=== PATIENT | female | born 1965 | race Caucasian/White ===

== ENCOUNTER → 2017-06-28 16:57 | Outpatient (CLI) | payer OTHER, SELFPAY ==
[2017-06-28 19:40] LABS: Free T4 (Free Thyroxine) 1.15 ng/dl (0.76-1.46); Thyroid Stimulating Hormone 1.78 uIU/ml (0.358-3.740)
== END ==
PROVIDERS: Visit Provider Nurse Practitioner Family
DX: E03.9 Hypothyroidism, unspecified (principal)
CPT/HCPCS: 36415; 84439; 84443

== ENCOUNTER → 2018-10-26 14:55 | Outpatient (CLI) | payer BC, SELFPAY ==
--- NOTE | 2018-10-26 15:01 | XR_ITS ---
XR DEXA axial skeleton HISTORY: ITS.REASON: POST MENOPAUSAL ORDERING PHYSICIAN: Wesley Hastings MD PATIENT AGE: 53 years COMPARISON: None FINDINGS: Lumbar spine AP view history fairly normal without sclerotic areas. L1-L4, BMD is 1.2-0, T score is 0.3. The BMD measured at the left femoral neck is 0.917 g/cm squared with a T score of -0.9. This is considered within normal limits according to the World Health Organization criteria. Fracture risk is mild. Treatment is advised. IMPRESSION: No definite osteopenia or osteoporosis.
--- NOTE | 2018-10-26 15:01 | MM_ITS ---
MM Dig screening mamm BI w/CAD CAD Screening COMPARISON: Digital mammograms with CAD 11/16/2016 INDICATION: There is no personal or family history of breast cancer, there has been a previous biopsy left breast for benign disease TECHNIQUE: Standard CC and MLO images were obtained. R2 CAD reviewed. FINDINGS: There is a markedly dense and heterogenic parenchymal pattern definitely lessening the sensitivity of mammography. Scattered numerous benign-appearing microcalcifications seen in each breast appearance most typical of sclerosing adenosis. There is no new or suspicious lesion in either breast and there are no suspicious microcalcifications. A biopsy clip is seen left breast. IMPRESSION: Stable exam with markedly dense and heterogenic parenchymal pattern BI-RADS Category: 2 Benign Finding(s) RECOMMENDED FOLLOW-UP: 1YR - 1 YEAR FOLLOW-UP (A letter has been sent to the patient regarding results of the study.)
== END ==
PROVIDERS: PCP Internal Medicine Adolescent Medicine; Visit Provider Internal Medicine Adolescent Medicine
DX: Z12.31 Encounter for screening mammogram for malignant neoplasm of breast (principal); Z13.820 Encounter for screening for osteoporosis; Z78.0 Asymptomatic menopausal state
CPT/HCPCS: 77067; 77080

== ENCOUNTER → 2018-11-17 16:00 | Outpatient (CLI) | payer BC, SELFPAY | PROVIDERS: Visit Provider Nurse Practitioner Family | DX: J01.10 Acute frontal sinusitis, unspecified (principal) ==

== ENCOUNTER → 2019-08-14 15:36 | Outpatient (CLI) | payer BC, SELFPAY ==
--- NOTE | 2019-08-14 15:39 | XR_ITS ---
PROCEDURE: XR SHOULDER LT MIN 2V CLINICAL INDICATION: LT SHOULDER PAIN, Left shoulder pain COMPARISON: No exams were available for comparison FINDINGS: There is an old midshaft clavicular fracture with mild inferior angulation of the distal aspect of the clavicle. There are minimal osteoarthritic changes of the glenohumeral joint. AC joint has an unremarkable appearance. No acute fracture or dislocation. IMPRESSION: Minimal osteoarthritis of the glenohumeral joint with old midshaft clavicular fracture Dictated by: Kishore Last MD 08/14/2019 16:36 Electronically signed by Kishore Last MD in [place] 08/14/2019 16:36
--- NOTE | 2019-08-14 15:41 | US_ITS ---
PROCEDURE: US EXTREMITY LT LIMITED CLINICAL INDICATION: SOFT TISSUE ANOMALY NEC,LT SHOULDER PAIN,CHRONIC PAIN Palpable abnormality in the left shoulder COMPARISON: No exams were available for comparison FINDINGS: There is an oval area hypoechogenicity with some internal linear areas of increased echogenicity in the left shoulder posteriorly corresponding to the palpable abnormality which measures 4 x 1 x 3.2 cm. This is consistent with a lipoma. No cyst or other anomaly is evident. 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 This could be confirmed with CT if clinically desired. Dictated by: Kishore Last MD 08/14/2019 17:11 Electronically signed by Kishore Last MD in [facility] 08/14/2019 17:11
== END ==
PROVIDERS: PCP Internal Medicine Adolescent Medicine; Visit Provider Nurse Practitioner Family
DX: Q79.8 Other congenital malformations of musculoskeletal system (principal); M25.512 Pain in left shoulder; G89.29 Other chronic pain
CPT/HCPCS: 73030; 76882

== ENCOUNTER 2020-06-27 18:44 | Emergency (ER) | payer BC, SELFPAY ==
[2020-06-27 19:07] VITALS: BP 127/65; PULSE 89; RESP 19; TEMP 36.9; O2SAT 99; BMI 25.2
[2020-06-27 19:22] LABS: UTC Strep Screen (Rapid) Positive (Negative)
--- NOTE | 2020-06-27 19:22 | HMH.EDUTC ---
[facility] [place] Disposition Clinical Impression: Strep throat Disposition: Home, Self-Care Condition on Discharge: Good Instructions: DI for Strep Throat, Strep Throat, Azithromycin, Benzonatate, Methylprednisolone Additional Instructions: *Monitor Temp, Over the counter Motrin or Tylenol as directed/as needed Tylenol every 4 hours and Motrin every 6 hours (as long as your family doctor has told you that you can take it) for fever or pain. and straight to ER if unable to lower temp less than 101.0 after medication given *Warm salt water gargles may help to soothe the throat *Throat Lozenges *Warm fluids like tea with honey may help to soothe the throat *Sleep elevated *Humidifier/Vaporizer *If you did not take Penicillin shot or was unable to, start taking antibiotic immediately and make sure that you take it for the FULL length of time although you should start to feel better in 24-48 hours *change toothbrush and toothpaste 24-48 hours after starting to take antibiotics so you do not reinfect yourself Monitor Temp. Tylenol and/or Ibuprofen as needed. ER if fever is no less than 101 despite alternating Tylenol and Ibuprofen * Encourage fluids, water, Gatorade, powerade, pedialyte if /toddler/or child *Cold fluids, popsicles and ice cream may feel good on his throat Follow up IMMEDIATELY for new or worsening symptoms or no Noticeable improvement over the next 48-72 hours. 911 for difficulty breathing or swallowing Prescriptions: methylPREDNISolone [Medrol 4mg tab] 4 mg PO DIRECTED #21 tab Transmission Status: Pending to [employer] # Benzonatate [Tessalon Perle 100mg Cap*] 100 mg PO TID PRN #30 cap PRN Reason: Cough Transmission Status: Pending to [employer] # Azithromycin [Z-Geovany 250mg Tab] 250 mg PO DIRECTED #6 tab Transmission Status: Pending to [employer] # Referrals: Wesley Hastings MD [Primary Care Provider] - As needed Forms: Work/School Release Time of Disposition: 19:31 Medical Decision Making - Giovanni Inquiry Pt receiving controlled substance: No Giovanni was queried for this patient: No Vital Signs: 03/25/21 19:07 Temperature 98.4 F Temperature Source Oral Pulse Rate [Right] 89 Respiratory Rate 19 Blood Pressure [Right Arm] 127/65 Blood Pressure Mean [Right Arm] 85 Blood Pressure Source [Right Arm] Automatic Cuff 02 Sat by Pulse Oximetry 99 Oxygen Delivery Method Room Air - Lab Data Lab results reviewed: Yes: I reviewed the patient's lab results. Medical Decision Narrative: Patient reports has taken azithromycin and steriods in the past without reactions or complications [facility] [place] HPI - General Stated complaint: cough Time Seen by Provider: 06/27/20 19:10 Description of Symptoms (Recalled from Triage Doc. by RN): Pt c/o cough & sore throat since last week. Pt reports her grandson was diagnosed with strep recently. HEENT Symptoms (Recalled from RN notes): Yes Resp Symptoms (Recalled from RN notes): Yes Skin Symptoms (Recalled from RN notes): No MS Symptoms (Recalled from RN notes): No Functional Status (Recalled from RN notes): na - History of Present Illness Provider Complaint: Patient states that she has not felt well for over a week State that she has been having sore throat, cough and headache on and off States that her grandson was sick recently too and had strep States that today at work her cough was worse and she was having some drainage so she come in to get checked - Related Data Home Medications Medication Instructions Recorded Confirmed levothyroxine 50 mcg capsule 50 mcg PO DAILY 12/13/17 11/17/18 Previous Rx's Medication Instructions Recorded Azithromycin [Z-Geovany 250mg Tab] 250 mg PO DIRECTED #6 tab 06/27/20 Benzonatate [Tessalon Perle 100mg 100 mg PO TID PRN #30 cap 06/27/20 Cap*] methylPREDNISolone [Medrol 4mg 4 mg PO DIRECTED #21 tab 06/27/20 tab] Allergies Allergy/AdvReac Type Sever
[2020-06-27 19:30] VITALS: BP 130/65; PULSE 88; RESP 19; TEMP 36.9; O2SAT 99
== END 2020-06-27 19:40 | disposition home or self-care (01) ==
PROVIDERS: Emergency Provider Nurse Practitioner; PCP Internal Medicine Adolescent Medicine
DX: J02.0 Streptococcal pharyngitis (principal); E03.9 Hypothyroidism, unspecified; F17.210 Nicotine dependence, cigarettes, uncomplicated
CPT/HCPCS: 87880; 99202; G0463

== ENCOUNTER → 2020-12-19 17:26 | Outpatient (CLI) | payer BC, SELFPAY | PROVIDERS: PCP Internal Medicine Adolescent Medicine; Visit Provider Nurse Practitioner | DX: Z20.822 Contact with and (suspected) exposure to COVID-19 (principal) | CPT/HCPCS: C9803; U0003; U0005 ==

== ENCOUNTER → 2021-01-03 14:48 | Outpatient (CLI) | payer BC, SELFPAY ==
--- NOTE | 2021-01-03 14:48 | MM_ITS ---
PROCEDURE INFORMATION: Exam: MG Bilateral Screening 3D Mammography Exam date and time: 01/03/2021 2:48 PM Age: 55 years old Clinical indication: screening mammogram TECHNIQUE: Imaging protocol: Bilateral screening tomosynthesis and 2D mammography including computer-aided detection (CAD) when performed. COMPARISON: 1. MG DIG MAMM-SCREEN KAILEE 10/26/2018 3:27 PM 2. MG DMSB DIG MAMM-SCREEN KAILEE W/CAD 11/16/2016 4:54 PM 3. MG DMDXUR DIG MAMM-DX UNI-RT 07/11/2014 8:53 AM 4. MG DMSB DIG MAMM-SCREEN KAILEE 05/10/2014 4:27 PM FINDINGS: MAMMOGRAPHY: Breast composition: The breast tissue is heterogeneously dense, which may obscure small masses. Mass: None. Architectural distortion: No new or suspicious architectural distortion. Calcifications: Stable benign-appearing calcifications are present. No new or suspicious cluster of microcalcifications have developed. Asymmetric density: No new or suspicious asymmetric density is present Skin thickening: None. Axillary adenopathy: None. IMPRESSION: No mammographic evidence of malignancy. Recommend annual screening mammography unless otherwise clinically indicated. ASSESSMENT: BI-RADS category 2: Benign
== END ==
PROVIDERS: PCP Internal Medicine Adolescent Medicine; Visit Provider Nurse Practitioner Obstetrics & Gynecology
DX: Z12.31 Encounter for screening mammogram for malignant neoplasm of breast (principal)
CPT/HCPCS: 77063; 77067

== ENCOUNTER 2021-05-28 18:36 | Emergency (ER) | payer BC, SELFPAY ==
[2021-05-28 19:05] VITALS: BP 127/68; PULSE 72; RESP 19; TEMP 36.6; O2SAT 98; BMI 25.1
[2021-05-28 19:11] LABS: UTC Strep Screen (Rapid) Negative (Negative)
--- NOTE | 2021-05-28 19:22 | HMH.EDUTC ---
[facility] [place] Disposition Clinical Impression: URI (upper respiratory infection) Qualifiers: URI type: unspecified URI Qualified Code(s): J06.9 - Acute upper respiratory infection, unspecified Disposition: Home, Self-Care Condition on Discharge: Good Instructions: Sore Throat, Acute Bronchitis, DI for Cough -- Adult Additional Instructions: *Monitor Temp, Over the counter Motrin or Tylenol as directed/as needed Tylenol every 4 hours and Motrin every 6 hours (as long as your family doctor has told you that you can take it) for fever or pain. and straight to ER if unable to lower temp less than 101.0 after medication given *Warm salt water gargles may help to soothe the throat *Throat Lozenges *Warm fluids like tea with honey may help to soothe the throat *Sleep elevated *Humidifier/Vaporizer Your throat swab was sent for culture. Those results are typically sent to your primary care. Be sure to follow up in 2-3 days with your family doctor/primary care physician if no improvement so they can review those result and treat if necessary. If you don?t have a primary care doctor, I recommend you get one but in the mean time, you will have to return to a walk in clinic Follow up IMMEDIATELY for new or worsening symptoms or no Noticeable improvement over the next 48-72 hours. 911 for difficulty breathing or swallowing You were tested for today for COVID19 your test result should be back in the next 24-48 hours, you may check your results on the [facility] My Health Portal Make sure to take your Vitamins Vit. C Vit D and Zinc if you can take them Prescriptions: Benzonatate [Benzonatate 100mg cap] 100 mg PO Q8HP PRN #15 cap PRN Reason: Cough Transmission Status: Pending to [employer] # methylPREDNISolone [Medrol 4mg tab] 4 mg PO DIRECTED #21 tab Transmission Status: Pending to [facility] # Azithromycin [Z-Geovany 250mg Tab] 250 mg PO DIRECTED #6 tab Transmission Status: Pending to [facility] # Referrals: Wesley Hastings MD [Primary Care Provider] - As needed Forms: Work/School Release Time of Disposition: 19:30 Medical Decision Making - Giovanni Inquiry Pt receiving controlled substance: No Giovanni was queried for this patient: No Vital Signs: 05/28/21 19:05 Temperature 97.8 F Temperature Source Oral Pulse Rate [Right Radial] 72 Respiratory Rate 19 Blood Pressure [Right Arm] 127/68 Blood Pressure Mean [Right Arm] 87 Blood Pressure Source [Right Arm] Automatic Cuff Blood Pressure Position [Right Arm] Sitting 02 Sat by Pulse Oximetry 98 - Lab Data Lab results reviewed: Yes: I reviewed the patient's lab results. Lab Results 05/28/21 19:02: Strep Scn Rapid Clinic Negative Orders (Tests/Meds): ORDERS Category Date Time Status Covid-19 Nasal PCR ([facility]) Routine Lab 05/28/21 18:58 Received Strep Screen Confirmation Stat Micro 05/28/21 19:02 Received [facility] UTC HPI - General Stated complaint: sore throat, cough Time Seen by Provider: 05/28/21 19:22 Mode of Arrival: Ambulatory Source of Information: Patient Limitations: No Limitations Description of Symptoms (Recalled from Triage Doc. by RN): C/O sore throat, cough, chest congestion x3 days HEENT Symptoms (Recalled from RN notes): Yes (sore throat, chest congestion) Resp Symptoms (Recalled from RN notes): No Skin Symptoms (Recalled from RN notes): No MS Symptoms (Recalled from RN notes): No Functional Status (Recalled from RN notes): n/a - History of Present Illness Provider Complaint: Patient states that she has been having sore throat, cough, and feels like she is having some congestion in her chest States that she isnt coughing anything up but feels like she is getting bronchitis States that today she was feeling worse so she came in to get checked and tested - Related Data Home Medications Medication Instructions Recorded Confirmed levothyroxine 50 mcg capsule 50 mcg PO DAILY 12/13/17 07/25/20
[2021-05-28 19:38] VITALS: BP 127/68; PULSE 72; RESP 19; TEMP 36.6; O2SAT 98
== END 2021-05-28 19:39 | disposition home or self-care (01) ==
PROVIDERS: Emergency Provider Nurse Practitioner; PCP Internal Medicine Adolescent Medicine
DX: J06.9 Acute upper respiratory infection, unspecified (principal); F17.210 Nicotine dependence, cigarettes, uncomplicated
CPT/HCPCS: 87880; 99202; C9803; G0463; U0003; U0005

== ENCOUNTER → 2021-06-20 06:50 | Outpatient (CLI) | payer BC, SELFPAY ==
--- NOTE | 2021-06-20 06:54 | CT_ITS ---
FINAL REPORT CLINICAL HISTORY: TOBACCO USER FINDINGS: Low-Dose Chest CT CTDI vol (mGy): 2.90 DLP (mGy-cm): 100.29 Axial images were obtained from the lung apex to the mid abdomen by computed tomography. Low-dose protocol was utilized. FINDINGS: CHEST: There is no axillary adenopathy. There is no hilar or mediastinal adenopathy. The heart is proper size. There is no pericardial or pleural effusion. Limited images of the upper abdomen are unremarkable. Lung window images demonstrate mild changes of emphysema. There is a calcified granuloma in the left lung base. There is a 5 mm ground-glass opacity in the posterior left upper lobe on image 23. There is a 6 mm ground-glass nodule image 27 in the left upper lobe. There is a 6 mm ground-glass nodule in the left upper lobe on image 33. IMPRESSION: Lung RADS category 2. Recommend 12 month follow-up low-dose chest CT. Reviewed, Interpreted and Dictated by Chema Jorgensen III, MD Transcribed by Jaydon Sawyer Authenticated by Chema Jorgensen III, MD on 06/20/2021 09:15:59 AM [facility]
== END ==
PROVIDERS: PCP Internal Medicine Adolescent Medicine; Visit Provider Internal Medicine Adolescent Medicine
DX: Z87.891 Personal history of nicotine dependence (principal); Z12.2 Encounter for screening for malignant neoplasm of respiratory organs
CPT/HCPCS: 71271

== ENCOUNTER → 2022-02-13 12:53 | Outpatient (CLI) | payer BC, SELFPAY ==
--- NOTE | 2022-02-13 12:53 | MM_ITS ---
PROCEDURE INFORMATION: Exam: MG Bilateral Screening 3D Mammography Exam date and time: 02/13/2022 12:55 PM Age: 56 years old Clinical indication: Screening. No family history of breast cancer. History of benign bilateral stereotactic biopsies. TECHNIQUE: Imaging protocol: Bilateral Screening tomosynthesis and 2D mammography including computer-aided detection (CAD) when performed. COMPARISON: 1. MG MM DIG SCREENING MAMM BI W/CAD 01/03/2021 2:52 PM 2. MG DIG MAMM-SCREEN KAILEE 10/26/2018 3:27 PM 3. MG DMSB DIG MAMM-SCREEN KAILEE W/CAD 11/16/2016 4:54 PM 4. MG DMDXUR DIG MAMM-DX UNI-RT 07/11/2014 8:53 AM FINDINGS: MAMMOGRAPHY: Breast composition: The breasts are heterogeneously dense, which may obscure small masses. Mass: None. Architectural distortion: None. Calcifications: No significant change in bilateral calcifications. No suspicious calcifications. Asymmetric density: None. Skin thickening: None. Axillary adenopathy: None. Other findings: Bilateral biopsy clips. IMPRESSION: No mammographic evidence of malignancy. Annual screening is recommended unless otherwise clinically indicated. ASSESSMENT: BI-RADS Category 2: Benign
== END ==
PROVIDERS: PCP Internal Medicine Adolescent Medicine; Visit Provider Nurse Practitioner Obstetrics & Gynecology
DX: Z12.31 Encounter for screening mammogram for malignant neoplasm of breast (principal)
CPT/HCPCS: 77063; 77067

== ENCOUNTER 2022-06-21 21:20 | Emergency (ER) | payer BC, SELFPAY ==
[2022-06-21 21:21] VITALS: BP 132/81; PULSE 75; RESP 19; TEMP 36.6; O2SAT 97; BMI 25.0
--- NOTE | 2022-06-21 21:36 | PC.NURSE ---
Dr. Dubnar at
--- NOTE | 2022-06-21 21:38 | ECG_ITS ---
APPROVED REPORT Exam: Resting ECG HR:74 bpm ECG Measurements Heart Rate 74 AXES AL 170 P 82 QRSd 122 QRS 87 QT 383 T 82 QTc 410 Conclusion SINUS RHYTHM POSSIBLE RIGHT VENTRICULAR CONDUCTION DELAY [RSR (QR) IN V1/V2] BORDERLINE ECG UNCONFIRMED REPORT Electronically signed by : Wesley Hastings MD 06/22/2022 17:28:49
--- NOTE | 2022-06-21 21:45 | XR_ITS ---
PROCEDURE INFORMATION: Exam: XR Chest Exam date and time: 06/21/2022 9:43 PM Age: 57 years old Clinical indication: Other: HTN; Additional info: New onset HTN TECHNIQUE: Imaging protocol: Radiologic exam of the chest. Views: 2 views. COMPARISON: CT LUNG SCREENING 06/20/2021 6:58 AM FINDINGS: Lungs: Unremarkable. No consolidation. Pleural spaces: Unremarkable. No pleural effusion. No pneumothorax. Heart/Mediastinum: Unremarkable. No cardiomegaly. Vasculature: Prominent ascending aorta on the PA view. Bones/joints: Very mild S shaped scoliosis of the thoracic spine. IMPRESSION: 1. Suspected mild dilation of the ascending thoracic aorta. 2. No acute pulmonary findings.
--- NOTE | 2022-06-21 21:48 | HMH.EDHA ---
Discharge Plan Disposition Patient Disposition: Home, Self-Care Prescriptions Prescriptions: No Action levothyroxine 100 mcg tablet 100 mcg PO AM Label Comments: TAKE 1 TABLET BY MOUTH EVERY DAY diclofenac sodium 75 mg tablet,delayed release (DR/EC) 75 mg PO BID Label Comments: TAKE 1 TABLET BY MOUTH TWICE DAILY famotidine 20 mg tablet 20 mg PO BID Label Comments: TAKE 1 TABLET BY MOUTH TWICE DAILY Referrals Follow up/Referrals: Wesley Hastings MD [Primary Care Provider] - See instructions Clinical Impressions Clinical Impression: Elevated BP without diagnosis of hypertension Instructions Patient Instructions: DI for Headache Discharge ED Provider: Manjinder (ED),[facility] HPI General Chief Complaint: Headache Stated Complaint: high blood pressure,headache, not feeling well Time Seen by Provider: 06/21/22 21:48 Mode of Arrival: Family Vehicle Source of Information: Patient, Relative and Medical Record Limitations: No Limitations Description of Symptoms (Recalled from ER Triage Doc. by RN): Pt c/o headache, cough, sinus congestion, and weakness for several days. Then tonight, her family took her BP with an automatic wrist cuff and it read 170s/90s and they became concerned. Pt denies any hx of high blood pressure. Currently the pt's BP is 132/81. Denies any SOA. Denies any chest pain. Denies any N/V/D. She does have hypothyroidism and dneies any new changes to her medications. History of Present Illness HPI Narrative: not feeling well over the last few days and had elevated bp - no focal neuro sx and no chest pain MD Complaint: headache Onset (ago): day(s) Severity: moderate Associated symptoms: none Treatments prior to arrival: none Related Data Home Medications Medication Instructions Recorded Confirmed diclofenac sodium 75 mg 75 mg PO BID Arthritis 06/21/22 06/21/22 tablet,delayed release famotidine 20 mg tablet 20 mg PO BID gerd 06/21/22 06/21/22 levothyroxine 100 mcg tablet 100 mcg PO AM Thyroid 06/21/22 06/21/22 Allergies Allergy/AdvReac Type Severity Reaction Status Date / Time No Known Allergies Allergy Verified 07/25/20 10:55 [facility] History Hepatitis A Screen Attestation statement:: This patient has been screened for Hepatitis A risk factors. I have reviewed the patient's past medical history: Yes 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: Denies: Cancer, Diabetes Mellitus Type 1 or Diabetes Mellitus Type 2 Other 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: Reports Arthritis and Thyroid Disease Other Surgeries: Yes No Previous Surgery Amputation: No Fractures: No Social History Smoking Status: Current every day smoker Tobacco Type: cigarettes # Packs/Day (cigarettes): 1 Alcohol Intake: never Alcohol Intake Frequency:: holidays/special occasions only Occupational Status: employed Housing: house Household Members: family Family Hx:: Cancer, Coronary Artery Disease, Diabetes, Hypertension and Thyroid Disorder [facility] Disclaimer: The information contained in this section may have been updated after the patient was seen, as this information can be updated by other users. 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 (Updated 06/21/22 @ 23:36 by Bright Dunbar (ED)MD) GERD (gastroesophageal reflux disease) Hypothyroid Social History Smoking Status: Current every day smoker tobacco type: cigarettes packs per day: 1 alcohol intake: never current occupational status: employed Travel in the last 8 weeks: None household members: family housing: house ROS Obtained: Yes All systems reviewed & no additional complaints except as documented Physical Exam General General appearance: alert Head Head exam: normocephalic Eye Eye exam: Present PERRL and EOMI ENT ENT exam: Present mucous membranes moist Neck Neck exam: Absent trachea midline Respiratory Respiratory exam: Present normal lung sounds bilaterally; Absent respiratory distress Cardiovascular Cardiovascular exam: Present regular rate
--- NOTE | 2022-06-21 21:50 | PC.NURSE ---
Pt gone to RAD via wheelchair
[2022-06-21 21:53] LABS: Basophils # 0.3 K/mm3 (0-0.2); Basophils % 1.7 % (0.1-2.0); Eosinophils # 0.3 K/mm3 (0.0-0.4); Eosinophils % 2.1 % (0.1-12.0); Hematocrit 45.9 % (37.0-47.0); Hemoglobin 15.3 g/dL (12.2-16.2); Lymphocytes # 5.2 K/mm3 (0.7-4.5); Mean Corpuscular HGB Conc 33.4 g/dL (31.8-35.4); Mean Corpuscular Volume 95.7 fl (81-99); Mean Platelet Volume 8.9 fl (7.4-10.4); Monocytes # 0.9 K/mm3 (0.1-1.0); Monocytes % 6.5 % (1.7-9.3); Neutrophils # 7.7 K/mm3 (1.8-7.8); Neutrophils % 53.7 % (37.0-80.0); Platelet Count 265 K/mm3 (142-424); Red Cell Distribution Width 12.9 % (11.5-17.5); White Blood Count 14.3 K/mm3 (4.8-10.8)
[2022-06-21 21:54] LABS: Chloride 107 mmol/L (98-107)
[2022-06-21 21:55] LABS: Sodium 142 mmol/L (136-145)
--- NOTE | 2022-06-21 21:55 | PC.NURSE ---
Pt back from RAD
[2022-06-21 21:57] LABS: Alanine Aminotransferase 24 U/L (12-78); Aspartate Amino Transferase 33 U/L (14-36); Blood Urea Nitrogen 24 mg/dl (7-17); Creatinine Clearance Estimated 96 mL/min (50-200); Estimated Glomerular Filt Rate 87 ml/min (>60); GFR (African American) 105 ML/MIN (>60)
--- NOTE | 2022-06-21 21:57 | PC.NURSE ---
Pt ambulatory to bathroom and able to provide urine sample
[2022-06-21 21:58] LABS: Albumin Level 4.2 g/dl (3.5-5.0); Albumin/Globulin Ratio 1.5 (1.1-1.8); Alkaline Phosphatase 114 U/L (38-126); Bilirubin,Total 0.3 mg/dl (0.2-1.3); Calcium 8.5 mg/dl (8.4-10.2); Carbon Dioxide 29 mmol/L (22.0-30.0); Globulin 2.8 g/dL (1.3-3.2); Glucose 105 mg/dl (74-100)
[2022-06-21 22:00] VITALS: BP 144/73; PULSE 76; O2SAT 96
[2022-06-21 22:02] VITALS: BP 128/60; PULSE 74; RESP 14; O2SAT 96
[2022-06-21 22:04] LABS: Microscopic, Urine URINE MICROSCOPIC (MICROSCOPIC)
[2022-06-21 22:14] LABS: Appearance,Urine CLEAR (Clear); Bilirubin,Urine Negative (Negative); Blood, Urine 1+ (Negative); Color,Urine YELLOW (Yellow); Glucose,Urine (UA) Negative (Negative); Ketones,Urine Negative (Negative); Leukocyte Esterase,Urine Negative (Negative); Nitrate,Urine Negative (Negative); Protein,Urine Negative (Negative); Specific Gravity, Urine <= 1.005 (1.005-1.030); Urobilinogen,Urine 0.2 EU/dl (0.2)
[2022-06-21 22:16] LABS: Coronavirus 19, PCR Not Detected (NotDetected); Influenza A, PCR Not Detected (NotDetected); Influenza B, PCR Not Detected (NotDetected)
[2022-06-21 22:16] LABS: Magnesium 1.9 mg/dl (1.6-2.3)
--- NOTE | 2022-06-21 22:17 | PC.NURSE ---
Dr. Dunbar at
[2022-06-21 22:21] LABS: Erythrocyte Sedimentation Rate 11 mm/hr (0-30)
[2022-06-21 22:24] LABS: Procalcitonin 0.034 ng/mL (0.0-2.0); Troponin I < 0.01 ng/ml (0.00-0.034)
[2022-06-21 22:27] LABS: T4 (Thyroxine) 12.8 ug/dl (5.53-11.0)
[2022-06-21 22:30] VITALS: BP 127/68; PULSE 67; RESP 16; O2SAT 95
[2022-06-21 22:41] LABS: Thyroid Stimulating Hormone 5.34 uIU/mL (0.465-4.68)
--- NOTE | 2022-06-21 22:41 | CT_ITS ---
PROCEDURE INFORMATION: Exam: CTA Chest With Contrast Exam date and time: 06/21/2022 10:54 PM Age: 57 years old Clinical indication: Other: HTN; Additional info: Elevated d-dimer TECHNIQUE: Imaging protocol: Computed tomographic angiography of the chest with contrast. 3D rendering (Not supervised by radiologist): MIP and/or 3D reconstructed images were created by the technologist. Radiation optimization: All CT scans at this facility use at least one of these dose optimization techniques: automated exposure control; mA and/or kV adjustment per patient size (includes targeted exams where dose is matched to clinical indication); or iterative reconstruction. Contrast material: ISOVUE; Contrast volume: 70 ml; Contrast route: INTRAVENOUS (IV); REPORTING DATA: Count of CT and Cardiac NM exams in prior 12 months: This patient has received 0 known CTs and 0 known cardiac nuclear medicine studies in the 12 months prior to the current study. COMPARISON: CT LUNG SCREENING 06/20/2021 6:58 AM FINDINGS: Pulmonary arteries: Normal. No pulmonary emboli. Aorta: The ascending thoracic aorta is nondilated measuring 3.3 cm in diameter. Lungs: There are mild centrilobular emphysematous changes. Calcified granuloma at the posterior right lung base. Pleural spaces: Unremarkable. No pneumothorax. No pleural effusion. Heart: Unremarkable. No cardiomegaly. No pericardial effusion. Lymph nodes: Nonspecific bilateral axillary lymph nodes similar to the prior study. Calcified mediastinal left hilar lymph nodes are noted. Bones/joints: Unremarkable. No acute fracture. Soft tissues: Unremarkable. IMPRESSION: 1. There is no pulmonary embolus or acute aortic finding. There is no aneurysmal dilation of the ascending thoracic aorta. 2. Mild centrilobular emphysematous changes. 3. Findings consistent with prior granulomatous exposure. COMMENTS: In the absence of a history or active diagnosis of lung cancer, it is recommended that this patient with emphysema be evaluated for enrollment in a low dose CT lung cancer screening program.
--- NOTE | 2022-06-21 22:44 | PC.NURSE ---
PE protocol CT ordered per MD. He has explained to pt and she is agreeable.
[2022-06-21 22:48] LABS: Bacteria,Urine Trace /lpf; WBC,Urine Occasional #/hpf (0-3)
--- NOTE | 2022-06-21 22:48 | PC.NURSE ---
pt to ct via wheelchair
--- NOTE | 2022-06-21 23:00 | PC.NURSE ---
pt back from CT scan
[2022-06-21 23:26] VITALS: BP 139/80; PULSE 79; RESP 18; TEMP 36.8; O2SAT 98
== END 2022-06-21 23:44 | disposition home or self-care (01) ==
PROVIDERS: Emergency Provider Emergency Medicine; PCP Internal Medicine Adolescent Medicine
DX: R51.9 Headache, unspecified (principal); R03.0 Elevated blood-pressure reading, without diagnosis of hypertension
CPT/HCPCS: 71046; 71275; 80053; 81001; 83735; 84145; 84436; 84443; 84484; 85025; 85378; 85651; 86140; 93005; 96361; 96374; 99285; C9803; J0131; Q9967; U0003; U0005

== ENCOUNTER → 2022-07-13 06:58 | Outpatient (CLI) | payer BC, SELFPAY ==
[2022-07-13 08:28] LABS: Basophils # 0.1 K/mm3 (0-0.2); Basophils % 0.6 % (0.1-2.0); Eosinophils # 0.4 K/mm3 (0.0-0.4); Eosinophils % 3.3 % (0.1-12.0); Hematocrit 46.1 % (37.0-47.0); Hemoglobin 15.2 g/dL (12.2-16.2); Lymphocytes # 3.6 K/mm3 (0.7-4.5); Lymphocytes % 33.5 % (10-50); Mean Corpuscular HGB Conc 32.9 g/dL (31.8-35.4); Mean Corpuscular Hemoglobin 31.8 pg (27.0-31.2); Mean Corpuscular Volume 96.8 fl (81-99); Mean Platelet Volume 9.1 fl (7.4-10.4); Monocytes # 0.8 K/mm3 (0.1-1.0); Monocytes % 7.1 % (1.7-9.3); Neutrophils % 55.5 % (37.0-80.0); Platelet Count 273 K/mm3 (142-424); Red Blood Count 4.77 M/mm3 (4.20-5.40); Red Cell Distribution Width 12.8 % (11.5-17.5); White Blood Count 10.7 K/mm3 (4.8-10.8)
[2022-07-13 08:58] LABS: Chloride 106 mmol/L (98-107); Sodium 141 mmol/L (136-145)
[2022-07-13 08:59] LABS: Potassium 4.7 mmoL/L (3.5-5.1)
[2022-07-13 09:01] LABS: Alanine Aminotransferase 23 U/L (12-78); Albumin Level 4.3 g/dl (3.5-5.0); Albumin/Globulin Ratio 1.7 (1.1-1.8); Alkaline Phosphatase 98 U/L (38-126); Anion Gap 13.7 mEq/L (5-15); Aspartate Amino Transferase 26 U/L (14-36); Bilirubin,Total 0.2 mg/dl (0.2-1.3); Blood Urea Nitrogen 18 mg/dl (7-17); Carbon Dioxide 26 mmol/L (22.0-30.0); Estimated Glomerular Filt Rate 103 ml/min (>60); GFR (African American) 125 ML/MIN (>60); Globulin 2.5 g/dL (1.3-3.2); Total Protein,Serum 6.8 g/dl (6.3-8.2)
[2022-07-13 09:02] LABS: Calcium 8.8 mg/dl (8.4-10.2); Glucose 88 mg/dl (74-100)
[2022-07-13 09:30] LABS: Thyroid Stimulating Hormone 1.77 uIU/mL (0.465-4.68)
[2022-07-14 13:14] LABS: Anti-Centromere B Antibodies <0.2 AI (0.0-0.9); Anti-DNA (DS) Ab Qn <1 IU/mL (0-9); Anti-Jo-1 <0.2 AI (0.0-0.9); Anti-Smith Antibody <0.2 AI (0.0-0.9); Antichromatin Antibodies <0.2 AI (0.0-0.9); Antiscleroderma-70 Antibodies <0.2 AI (0.0-0.9); RNP Antibodies <0.2 AI (0.0-0.9); Sjogren's Anti-SS-A <0.2 AI (0.0-0.9); Sjogren's Anti-SS-B <0.2 AI (0.0-0.9)
== END ==
PROVIDERS: PCP Internal Medicine Adolescent Medicine; Visit Provider Internal Medicine Adolescent Medicine
DX: M19.041 Primary osteoarthritis, right hand (principal); M19.042 Primary osteoarthritis, left hand; E03.9 Hypothyroidism, unspecified
CPT/HCPCS: 36415; 80053; 84443; 85025; 86225; 86235

== ENCOUNTER 2022-07-15 17:28 | Emergency (ER) | payer BC, SELFPAY ==
[2022-07-15 17:40] VITALS: BP 134/62; PULSE 90; RESP 20; TEMP 37.2; O2SAT 96; BMI 25.2
--- NOTE | 2022-07-15 17:46 | EXP.UTC ---
Discharge Plan Disposition Patient Disposition: Home, Self-Care Condition: Good Prescriptions Prescriptions: New amoxicillin [amoxicillin] 875 mg tablet 875 mg PO Q12H Qty: 20 0RF benzonatate [benzonatate] 100 mg capsule 100 mg PO TIDP PRN (Reason: Cough) Qty: 30 0RF No Action levothyroxine 100 mcg tablet 100 mcg PO AM Label Comments: TAKE 1 TABLET BY MOUTH EVERY DAY Referrals Follow up/Referrals: Wesley Hastings MD [Primary Care Provider] - See instructions Activity Restrictions/Add. Instructions Additional Instructions/Restrictions: Encourage her to drink plenty of fluids. Give her the medications as directed. Give her tylenol or ibuprofen for pain or fever. Throw her tooth brush away and get a new one. Follow up with her regular doctor. GO TO THE ER FOR ANY WORSENING SYMPTOMS Clinical Impressions Clinical Impression: Pharyngitis Stand Alone Forms Stand Alone Forms: Work/School Release Instructions Patient Instructions: Sore Throat, DI for Pharyngitis/Tonsillopharyngitis -- Adult Discharge ED Provider: Raz Lanza [facility] General Stated complaint: sore throat, cough Time Seen by Provider: 07/15/22 17:46 History of Present Illness Provider Complaint: She states that for the past 2 days she has had sore throat, chills, body aches and low grade fever. Related Data Home Medications Medication Instructions Recorded Confirmed levothyroxine 100 mcg tablet 100 mcg PO AM Thyroid 06/21/22 07/15/22 Previous Rx's Medication Instructions Recorded amoxicillin 875 mg tablet 875 mg PO Q12H #20 tabs 07/15/22 benzonatate 100 mg capsule 100 mg PO TIDP PRN Cough #30 caps 07/15/22 Allergies Allergy/AdvReac Type Severity Reaction Status Date / Time No Known Allergies Allergy Verified 07/25/20 10:55 [facility] Disclaimer: The information contained in this section may have been updated after the patient was seen, as this information can be updated by other users. 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 GERD (gastroesophageal reflux disease) Hypothyroid Social History Smoking Status: Current every day smoker tobacco type: cigarettes packs per day: 1 alcohol intake: never current occupational status: employed Travel in the last 8 weeks: None household members: family housing: house ROS Obtained: Yes All systems reviewed & no additional complaints except as documented Constitutional Constitutional: Reports chills and Reports fever(s) Eyes Eyes: Denies eye discharge ENT Ears, Nose, Mouth, and Throat: Reports as per HPI Cardiovascular Cardiovascular: Denies chest pain Respiratory Respiratory: Denies chest congestion and Reports cough Gastrointestinal Gastrointestingal: Reports nausea; Denies abdominal pain, constipation, cramping, diarrhea or vomiting Musculoskeletal Musculoskeletal: Denies arthralgias Integumentary/Breasts Skin/Breast: Denies rash Neurologic Neurologic: Denies paresthesias Physical Exam General General appearance: alert and in no apparent distress Head Head exam: atraumatic, normocephalic and normal inspection Eye Eye exam: Present normal appearance, PERRL and EOMI ENT ENT exam: Present mucous membranes moist and normal external ear exam Expanded ENT Exam TM/Canal exam: Bilateral TM: erythema and bulging Nose exam: Absent sinus tenderness Mouth exam: Present normal external inspection; Absent drooling Teeth exam: Present normal inspection Throat exam: Present tonsillar erythema, tonsillomegaly and tonsillar exudate Neck Neck exam: Present normal inspection, full ROM and trachea midline; Absent tenderness, meningismus or lymphadenopathy Chest Chest inspection: Present normal inspection and symmetric chest wall rise; Absent tenderness Respiratory Respiratory exam: Present normal lung sounds bilaterally; Absent respiratory distress, whe
[2022-07-15 17:47] LABS: UTC Strep Screen (Rapid) Negative (Negative)
[2022-07-15 17:56] VITALS: BP 134/62; PULSE 90; RESP 20; TEMP 37.2; O2SAT 96
== END 2022-07-15 18:21 | disposition home or self-care (01) ==
PROVIDERS: Emergency Provider Nurse Practitioner Family; PCP Internal Medicine Adolescent Medicine
DX: J02.9 Acute pharyngitis, unspecified (principal); F17.210 Nicotine dependence, cigarettes, uncomplicated; E03.9 Hypothyroidism, unspecified; K21.9 Gastro-esophageal reflux disease without esophagitis
CPT/HCPCS: 87880; 96372; 99212; 99214; G0463; J0696

== ENCOUNTER → 2022-07-31 14:09 | Outpatient (CLI) | payer BC, SELFPAY ==
--- NOTE | 2022-07-31 14:13 | CT_ITS ---
FINAL REPORT CLINICAL HISTORY: H/O TOBACCO USE, 1 pk per day x 40 yrs, family hx of lung ca FINDINGS: Axial images were obtained from the lung apex to the mid abdomen by computed tomography. Low-dose protocol was utilized. CTDl vol(mGy): 2.90 DLP (mGy-cm): 108.38 FINDINGS: There are multiple, stable borderline size mediastinal nodes. Borderline size axial nodes are stable. The heart size is normal. There is no pericardial or pleural effusion. There is mild emphysema. A calcified granuloma is seen in the left lower lobe. Previously seen nodules in the left upper lobe have resolved and may have been inflammatory. Limited images of the upper abdomen demonstrate left adrenal gland enlargement likely related to an adenoma. This is stable. IMPRESSION: Lung RADS category 1. Recommend 12 month follow-up low-dose chest CT. Reviewed, Interpreted and Dictated by Chema Jorgensen III, MD Transcribed by Sahnna Valentin Authenticated and [facility]
== END ==
PROVIDERS: PCP Internal Medicine Adolescent Medicine; Visit Provider Internal Medicine Adolescent Medicine
DX: Z87.891 Personal history of nicotine dependence (principal); Z12.2 Encounter for screening for malignant neoplasm of respiratory organs; Z71.6 Tobacco abuse counseling
CPT/HCPCS: 71271

== ENCOUNTER 2022-08-07 17:24 | Emergency (ER) | payer BC, SELFPAY ==
[2022-08-07 17:25] VITALS: BP 124/74; PULSE 77; RESP 21; TEMP 37.4; O2SAT 94; BMI 25.2
--- NOTE | 2022-08-07 17:35 | EXP.UTC ---
Discharge Plan Disposition Patient Disposition: Home, Self-Care Condition: Good Prescriptions Prescriptions: New azithromycin [Zithromax] 250 mg tablet 250 mg PO UD DOSE PK Qty: 6 0RF Rx Instructions: Take two (2) tablets today, then one (1) tablet days #2 thru #5 methylprednisolone 4 mg Tablets,Dose Pack 4 mg PO DIRECTED Qty: 21 0RF fluticasone propionate [fluticasone propionate] 50 mcg/actuation spray,suspension 2 spray intranasal DAILY 30 Days Qty: 120 0RF No Action levothyroxine 100 mcg tablet 100 mcg PO AM Label Comments: TAKE 1 TABLET BY MOUTH EVERY DAY Referrals Follow up/Referrals: Wesley Hastings MD [Primary Care Provider] - See instructions Activity Restrictions/Add. Instructions Additional Instructions/Restrictions: Drink plenty of fluids. Take tylenol or ibuprofen for pain or fever. Take the medications as directed. Follow up with your regular doctor. GO TO THE ER FOR ANY WORSENING SYMPTOMS Don't start the oral steroids until tomorrow, since you had the shot here today. Clinical Impressions Clinical Impression: URI (upper respiratory infection), Sinusitis Stand Alone Forms Stand Alone Forms: Work/School Release Instructions Patient Instructions: Sinusitis, DI for Sinusitis Discharge ED Provider: Raz Lanza [facility] [place] [facility] HPI General Stated complaint: sore throat, cough, congestion Time Seen by Provider: 08/07/22 17:35 History of Present Illness Provider Complaint: She states that for the past 2 days she has had sore throat, chills, body aches and low grade fever. Related Data Home Medications Medication Instructions Recorded Confirmed levothyroxine 100 mcg tablet 100 mcg PO AM Hypothyroid 06/21/22 08/07/22 Previous Rx's Medication Instructions Recorded azithromycin 250 mg tablet 250 mg PO UD DOSE PK #6 tabs 08/07/22 (Zithromax) fluticasone propionate 50 2 spray intranasal DAILY 30 days 08/07/22 mcg/actuation nasal #120 ea spray,suspension methylprednisolone 4 mg tablets in 4 mg PO DIRECTED #21 tabs 08/07/22 a dose pack Allergies Allergy/AdvReac Type Severity Reaction Status Date / Time No Known Allergies Allergy Verified 07/25/20 10:55 [facility] Disclaimer: The information contained in this section may have been updated after the patient was seen, as this information can be updated by other users. 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 COPD (chronic obstructive pulmonary disease) GERD (gastroesophageal reflux disease) Hypothyroid Thyroid disease Social History Smoking Status: Current every day smoker tobacco type: cigarettes packs per day: 1 alcohol intake: never current occupational status: employed Travel in the last 8 weeks: None household members: family housing: house ROS Obtained: Yes All systems reviewed & no additional complaints except as documented Constitutional Constitutional: Reports chills and Reports fever(s) Eyes Eyes: Denies eye discharge ENT Ears, Nose, Mouth, and Throat: Reports as per HPI Cardiovascular Cardiovascular: Denies chest pain Respiratory Respiratory: Denies chest congestion and Reports cough Gastrointestinal Gastrointestingal: Reports nausea; Denies abdominal pain, constipation, cramping, diarrhea or vomiting Musculoskeletal Musculoskeletal: Denies arthralgias Integumentary/Breasts Skin/Breast: Denies rash Neurologic Neurologic: Denies paresthesias Physical Exam General General appearance: alert and in no apparent distress Head Head exam: atraumatic, normocephalic and normal inspection Eye Eye exam: Present normal appearance, PERRL and EOMI ENT ENT exam: Present mucous membranes moist and normal external ear exam Expanded ENT Exam TM/Canal exam: Bilateral TM: erythema and bulging Nose exam: Absent sinus tenderness Mouth exam: Present normal external inspection
[2022-08-07 17:40] LABS: UTC Strep Screen (Rapid) Negative (Negative)
[2022-08-07 18:32] VITALS: BP 124/74; PULSE 77; RESP 21; TEMP 37.4; O2SAT 94
== END 2022-08-07 18:48 | disposition home or self-care (01) ==
PROVIDERS: Emergency Provider Nurse Practitioner Family; PCP Internal Medicine Adolescent Medicine
DX: J01.90 Acute sinusitis, unspecified (principal); J06.9 Acute upper respiratory infection, unspecified; F17.210 Nicotine dependence, cigarettes, uncomplicated; J44.9 Chronic obstructive pulmonary disease, unspecified; E03.9 Hypothyroidism, unspecified
CPT/HCPCS: 87880; 96372; 99212; 99214; G0463

== ENCOUNTER 2022-11-20 13:58 | Emergency (ER) | payer BC, SELFPAY ==
[2022-11-20 14:05] VITALS: BP 116/58; PULSE 72; RESP 18; TEMP 36.8; O2SAT 97; BMI 27.8
--- NOTE | 2022-11-20 14:16 | EXP.UTC ---
Discharge Plan Disposition Patient Disposition: Home, Self-Care Condition: Good Prescriptions Prescriptions: New benzonatate 100 mg capsule 100 mg PO TID PRN (Reason: cough) Qty: 30 0RF amoxicillin-pot clavulanate 875-125 mg Tablet 1 tab PO Q12H Qty: 20 0RF ibuprofen 600 mg tablet 600 mg PO Q6HP PRN (Reason: Moderate Pain) Qty: 20 0RF No Action levothyroxine 100 mcg tablet 100 mcg PO AM Patient Comments: TAKE 1 TABLET BY MOUTH EVERY DAY Referrals Follow up/Referrals: Wesley Hastings MD [Primary Care Provider] - See instructions Activity Restrictions/Add. Instructions Additional Instructions/Restrictions: Use dental balls as prescribed Call and make appointment with dentist for further treatment and evaluation Return if needed Straight to ER if any life threatening symptoms Clinical Impressions Clinical Impression: Dental abscess Instructions Patient Instructions: Acute Bronchitis, DI for Tooth Abscess, DI for Tooth Decay Discharge ED Provider: Lynn Peoples [facility] General Stated complaint: cough,dental pain Mode of Arrival: Ambulatory Source of Information: Patient Limitations: No Limitations Time Seen by Provider: 11/20/22 14:16 Description of Symptoms (Recalled from Triage Doc. by RN): PATIENT C/O COUGH X 2 WEEKS AND BOTTOM LEFT TOOTHACHE X 2 DAYS HEENT Symptoms (Recalled from RN notes): Yes Resp Symptoms (Recalled from RN notes): Yes Skin Symptoms (Recalled from RN notes): No MS Symptoms (Recalled from RN notes): No Functional Status (Recalled from RN notes): WNL History of Present Illness Provider Complaint: Patient states that she has been having cough and nasal congesion for a couple of weeks and she has a broken tooth on her left bottom that has been hurting her and today noticed she was starting to have some swelling and redness worried it may be getting infected Related Data Home Medications Medication Instructions Recorded Confirmed levothyroxine 100 mcg tablet 100 mcg PO AM Hypothyroid 06/21/22 11/20/22 Previous Rx's Medication Instructions Recorded amoxicillin 875 mg-potassium 1 tab PO Q12H #20 tabs 11/20/22 clavulanate 125 mg tablet benzonatate 100 mg capsule 100 mg PO TID PRN cough #30 caps 11/20/22 ibuprofen 600 mg tablet 600 mg PO Q6HP PRN Moderate Pain 11/20/22 #20 tabs Allergies Allergy/AdvReac Type Severity Reaction Status Date / Time No Known Allergies Allergy Verified 07/25/20 10:55 Worker's Comp Is this a Worker's Comp case?: No [facility] Disclaimer: The information contained in this section may have been updated after the patient was seen, as this information can be updated by other users. 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 COPD (chronic obstructive pulmonary disease) GERD (gastroesophageal reflux disease) Hypothyroid Thyroid disease Social History Smoking Status: Current every day smoker tobacco type: cigarettes packs per day: 1 alcohol intake: never current occupational status: employed Travel in the last 8 weeks: None household members: family housing: house ROS Obtained: Yes All systems reviewed & no additional complaints except as documented and Yes Systems reviewed as appropriate & no additional complaints except as documented Constitutional Constitutional: Reports system reviewed and no additional complaints, except as documented and Reports as per HPI ENT Ears, Nose, Mouth, and Throat: Reports system reviewed and no additional complaints, except as documented, Reports as per HPI, Reports dental pain, Reports nasal congestion and Reports nasal discharge Cardiovascular Cardiovascular: Reports system reviewed and no additional complaints, except as documented and Reports as per HPI Respiratory Respiratory: Reports system reviewed and no additional complaints, except as documented and Reports as per HPI Gastrointestin
[2022-11-20 14:42] VITALS: BP 116/58; PULSE 72; RESP 18; TEMP 36.8; O2SAT 97
== END 2022-11-20 14:45 | disposition home or self-care (01) ==
PROVIDERS: Emergency Provider Nurse Practitioner; PCP Internal Medicine Adolescent Medicine
DX: K04.7 Periapical abscess without sinus (principal); F17.210 Nicotine dependence, cigarettes, uncomplicated; J44.9 Chronic obstructive pulmonary disease, unspecified; K21.9 Gastro-esophageal reflux disease without esophagitis; E03.9 Hypothyroidism, unspecified
CPT/HCPCS: 96372; 99212; 99214; G0463

== ENCOUNTER → 2023-03-05 15:06 | Outpatient (CLI) | payer BC, SELFPAY ==
--- NOTE | 2023-03-05 15:07 | MM_ITS ---
PROCEDURE INFORMATION: Exam: MG Bilateral Screening 3D Mammography Exam date and time: 03/05/2023 3:24 PM Age: 57 years old Clinical indication: Screening examination TECHNIQUE: Imaging protocol: Bilateral Screening tomosynthesis and 2D mammography including computer-aided detection (CAD) when performed. COMPARISON: 1. MG MM DIG SCREENING MAMM BI W/CAD 02/13/2022 12:55 PM 2. MG MM DIG SCREENING MAMM BI W/CAD 01/03/2021 2:52 PM FINDINGS: MAMMOGRAPHY: Breast composition: The breasts are extremely dense, which lowers the sensitivity of mammography. Mass: None. Architectural distortion: None. Calcifications: No suspicious calcifications. Asymmetric density: None. Skin thickening: None. Axillary adenopathy: None. IMPRESSION: No mammographic evidence of malignancy. Annual screening is recommended unless otherwise clinically indicated. ASSESSMENT: BI-RADS Category 1: Negative
== END ==
PROVIDERS: PCP Internal Medicine Adolescent Medicine; Visit Provider Nurse Practitioner Obstetrics & Gynecology
DX: Z12.31 Encounter for screening mammogram for malignant neoplasm of breast (principal)
CPT/HCPCS: 77063; 77067

== ENCOUNTER 2023-03-17 08:50 | Emergency (ER) | payer BC, SELFPAY ==
[2023-03-17 09:05] VITALS: BP 146/88; PULSE 84; RESP 19; TEMP 37.7; O2SAT 97; BMI 25.9
[2023-03-17 09:33] LABS: UTC Influenza A Antigen Negative (Negative); UTC Influenza B Antigen Negative (Negative)
--- NOTE | 2023-03-17 09:37 | EXP.UTC ---
Discharge Plan Disposition Patient Disposition: Home, Self-Care Condition: Good Prescriptions Prescriptions: No Action nicotine 21 mg/24 hr patch 24 hour 1 patch transdermal Q24H Qty: 14 4RF levothyroxine 100 mcg tablet 100 mcg PO AM Patient Comments: TAKE 1 TABLET BY MOUTH EVERY DAY Referrals Follow up/Referrals: Wesley Hastings MD [Primary Care Provider] - See instructions Activity Restrictions/Add. Instructions Additional Instructions/Restrictions: No sign of a bacterial infection. Likely viral. Viruses can take 7-14 days to run their course. Nasal saline and bulb syringe or nose Delfina to remove nasal drainage to help with nasal congestion. Hard to eat, drink, sleep with nasal congestion so important to keep this cleaned out. Monitor temp. Tylenol or Motrin as needed for pain or fever Encourage fluids, water, Gatorade, Powerade, Pedialyte if infant/toddler/child Warm salt water gargles Warm fluids Sore throat lozenges Sleep elevated Humidifier/vaporizer Follow-up immediately for new or worsening symptoms or no noticeable improvement over the next 48-72 hours. Clinical Impressions Clinical Impression: URI (upper respiratory infection) Qualifiers: URI type: unspecified viral URI Qualified Code(s): J06.9 - Acute upper respiratory infection, unspecified Stand Alone Forms Stand Alone Forms: Work/School Release Instructions Patient Instructions: DI for Viral Upper Respiratory Infection -- Adult Discharge ED Provider: Lukas ([facility])Nancy [facility] [place] HPI General Stated complaint: congested, fever, chills Mode of Arrival: Ambulatory Source of Information: Patient Limitations: No Limitations Time Seen by Provider: 03/17/23 09:44 Description of Symptoms (Recalled from Triage Doc. by RN): stopped up, congestion, and chills HEENT Symptoms (Recalled from RN notes): Yes Resp Symptoms (Recalled from RN notes): No Skin Symptoms (Recalled from RN notes): No MS Symptoms (Recalled from RN notes): No Functional Status (Recalled from RN notes): n/a History of Present Illness Provider Complaint: 57 yr old female presents for stopped up, clear congestion, and chills Related Data Home Medications Medication Instructions Recorded Confirmed levothyroxine 100 mcg tablet 100 mcg PO AM Hypothyroid 06/21/22 03/17/23 Previous Rx's Medication Instructions Recorded nicotine 21 mg/24 hr daily 1 patch transdermal Q24H #14 ea 09/16/23 transdermal patch Allergies Allergy/AdvReac Type Severity Reaction Status Date / Time No Known Allergies Allergy Verified 03/17/23 09:18 Worker's Comp Is this a Worker's Comp case?: No [facility] Disclaimer: The information contained in this section may have been updated after the patient was seen, as this information can be updated by other users. 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) Smoking Status: Current every day smoker tobacco type: cigarettes packs per day: 1 alcohol intake: never current occupational status: employed Travel in the last 8 weeks: None household members: family housing: house ROS Obtained: Yes All systems reviewed & no additional complaints except as documented Constitutional Constitutional: Reports system reviewed and no additional complaints, except as documented Eyes Eyes: Reports system reviewed and no additional complaints, except as documented ENT Ears, Nose, Mouth, and Throat: Reports system reviewed and no additional complaints, except as documented, Reports as per HPI, Reports
[2023-03-17 10:05] VITALS: BP 146/88; PULSE 84; RESP 18; TEMP 37.7; O2SAT 97
== END 2023-03-17 10:05 | disposition home or self-care (01) ==
PROVIDERS: Emergency Provider Nurse Practitioner Family; PCP Internal Medicine Adolescent Medicine
DX: J06.9 Acute upper respiratory infection, unspecified (principal); R09.81 Nasal congestion; R68.83 Chills (without fever); B34.9 Viral infection, unspecified; F17.210 Nicotine dependence, cigarettes, uncomplicated; J44.9 Chronic obstructive pulmonary disease, unspecified; K21.9 Gastro-esophageal reflux disease without esophagitis; E03.9 Hypothyroidism, unspecified
CPT/HCPCS: 87804; 96372; 99212; 99214; G0463

== ENCOUNTER 2023-06-20 10:29 | Emergency (ER) | payer BC, SELFPAY ==
[2023-06-20 11:10] VITALS: BP 126/86; PULSE 76; RESP 18; TEMP 37.2; O2SAT 96; BMI 24.7
--- NOTE | 2023-06-20 11:28 | ED_ITS ---
Discharge Plan Disposition Patient Disposition: Home, Self-Care Condition: Good Prescriptions Prescriptions: New azithromycin [Zithromax Z-Geovany] 250 mg tablet See Rx Instructions .ROUTE .COMPLEX 5 Days Qty: 6 0RF Rx Instructions: For 250 mg dose pack: take 500 mg today (day 1), then 250 mg for 4 days (days 2-5) No Action levothyroxine 100 mcg tablet 100 mcg PO AM Patient Comments: TAKE 1 TABLET BY MOUTH EVERY DAY Referrals Follow up/Referrals: Wesley Hastings MD [Primary Care Provider] - See instructions Activity Restrictions/Add. Instructions Additional Instructions/Restrictions: *Monitor Temp, Over the counter Motrin or Tylenol as directed/as needed Tylenol every 4 hours and Motrin every 6 hours (as long as your family doctor has told you that you can take it) for fever or pain. and straight to ER if unable to lower temp less than 101.0 after medication given *Warm salt water gargles may help to soothe the throat *Throat Lozenges? *Warm fluids like tea with honey may help to soothe the throat? *Sleep elevated *Humidifier/Vaporizer Your throat swab was sent for culture. Those results are typically sent to your primary care. Be sure to follow up in 2-3 days with your family doctor/primary care physician if no improvement so they can review those result and treat if necessary. If you don?t have a primary care doctor, I recommend you get one but in the mean time, you will have to return to a walk in clinic Follow up IMMEDIATELY for new or worsening symptoms or no Noticeable improvement over the next 48-72 hours. 911 for difficulty breathing or swallowing Clinical Impressions Clinical Impression: Pharyngitis Instructions Patient Instructions: Sore Throat Discharge ED Provider: Lynn Peoples [facility] General Stated complaint: sore throat Mode of Arrival: Ambulatory Source of Information: Patient Limitations: No Limitations Time Seen by Provider: 06/20/23 11:28 Description of Symptoms (Recalled from Triage Doc. by RN): PATIENT C/O SORE THROAT, NO ENERGY AND COUGH ALL WEEK HEENT Symptoms (Recalled from RN notes): Yes Resp Symptoms (Recalled from RN notes): Yes Skin Symptoms (Recalled from RN notes): No MS Symptoms (Recalled from RN notes): No Functional Status (Recalled from RN notes): WNL History of Present Illness Provider Complaint: Patient states all week she has been having sore throat, feeling achy and fatigue States today she was still not feeling any better so she came in to get checked Related Data Home Medications Medication Instructions Recorded Confirmed levothyroxine 100 mcg tablet 100 mcg PO AM Hypothyroid 06/21/22 06/20/23 Previous Rx's Medication Instructions Recorded azithromycin 250 mg tablet See Rx Instructions PO .COMPLEX 5 06/20/23 (Zithromax Z-Geovany) days #6 tabs Allergies Allergy/AdvReac Type Severity Reaction Status Date / Time No Known Allergies Allergy Verified 03/17/23 09:18 Worker's Comp Is this a Worker's Comp case?: No [facility] Disclaimer: The information contained in this section may have been updated after the patient was seen, as this information can be updated by other users. 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) Smoking Status: Current every day smoker tobacco type: cigarettes packs per day: 1 alcohol intake: never current occupational status: employed Travel in the last 8 weeks: None household members: family housing: house ROS Obtained: Yes All systems reviewed & no additional complaints except as documented and Yes Systems reviewed as appropriate & no additional complaints except as documented Constitutional Constitutional: Reports system reviewed and no additional complaints, except as documented, Reports as per HPI, Reports body ache, Reports chills and Reports fatigue ENT Ears, Nose, Mouth, and Throat: Reports system reviewed and no additional complaints, except as documented, Reports as per HPI and Reports sore throat Cardiovascular Cardiovascular: Reports system reviewed and no additional complaints, except as documented and Reports as per HPI Respiratory Respiratory: Reports system reviewed and no additional complaints, except as documented and Reports as per HPI Gastrointestinal Gastrointestingal: Reports system reviewed and no additional complaints, except as documented and as per HPI Endocrine Endocrine: Reports fatigue Physical Exam General General appearance: alert and in no apparent distress ENT ENT exam: Present mucous membranes moist Expanded ENT Exam Nose exam: Present sinus tenderness Throat exam: Present tonsillar erythema Respiratory Respiratory exam: Present normal lung sounds bilaterally; Absent respiratory distress or wheezes Cardiovascular Cardiovascular exam: Present regular rate, normal rhythm and normal heart sounds Neurological Exam Neurological exam: Present alert, oriented X3 and normal gait Medical Decision Making Giovanni Inquiry Pt receiving controlled substance: No Giovanni was queried for this patient: No Vital Signs: 06/20/23 11:10 Temperature 98.9 F Temperature Source Oral Pulse Rate [Left Brachial] 76 Respiratory Rate 18 Blood Pressure [Left Arm] 126/86 Blood Pressure Mean [Left Arm] 99 Blood Pressure Source [Left Arm] Automatic Cuff Blood Pressure Position [Left Arm] Sitting 02 Sat by Pulse Oximetry 96 Oxygen Delivery Method Room Air Lab Data Lab results reviewed: Yes I reviewed the patient's lab results.
[2023-06-20 11:32] LABS: UTC Strep Screen (Rapid) Negative (Negative)
[2023-06-20 11:33] LABS: UTC Influenza A Antigen Negative (Negative); UTC Influenza B Antigen Negative (Negative)
[2023-06-20 11:38] VITALS: BP 126/86; PULSE 76; RESP 18; TEMP 37.2; O2SAT 96
[2023-06-20] MEDS: METHYLPREDNISOLONE SOD SUCC 125MG VIAL 125 MG IM (11:45)
== END 2023-06-20 11:51 | disposition home or self-care (01) ==
PROVIDERS: Emergency Provider Nurse Practitioner; PCP Internal Medicine Adolescent Medicine
DX: J02.9 Acute pharyngitis, unspecified (principal); R53.83 Other fatigue; J44.9 Chronic obstructive pulmonary disease, unspecified; K21.9 Gastro-esophageal reflux disease without esophagitis; E03.9 Hypothyroidism, unspecified; F17.210 Nicotine dependence, cigarettes, uncomplicated
CPT/HCPCS: 87804; 87880; 96372; 99212; 99214; G0463

== ENCOUNTER 2023-07-31 10:48 | Emergency (ER) | payer BC, SELFPAY ==
[2023-07-31 11:14] VITALS: BP 118/70; PULSE 75; RESP 18; TEMP 36.5; O2SAT 98; BMI 24.2
--- NOTE | 2023-07-31 11:36 | ED_ITS ---
Discharge Plan Disposition Patient Disposition: Home, Self-Care Condition: Good Prescriptions Prescriptions: New amoxicillin 500 mg tablet 500 mg PO BID 10 Days Qty: 20 0RF No Action levothyroxine 100 mcg tablet 100 mcg PO AM Patient Comments: TAKE 1 TABLET BY MOUTH EVERY DAY Referrals Follow up/Referrals: Wesley Hastings MD [Primary Care Provider] - See instructions Activity Restrictions/Add. Instructions Additional Instructions/Restrictions: start antibiotics tomorrow tylenol or motrin as needed for pain call dentist on wednesday for appointment if worsen or no improvement return Clinical Impressions Clinical Impression: Dental abscess Instructions Patient Instructions: Tooth Abscess [facility]charge [facility] [facility] [place] H[place] General Stated complaint: toothache Mode of Arrival: Ambulatory Source of Information: Patient Limitations: No Limitations Time Seen by Provider: 07/31/23 11:36 Description of Symptoms (Recalled from Triage Doc. by RN): toothache HEENT Symptoms (Recalled from RN notes): No Resp Symptoms (Recalled from RN notes): No Skin Symptoms (Recalled from RN notes): No MS Symptoms (Recalled from RN notes): No Functional Status (Recalled from RN notes): na History of Present Illness Provider Complaint: 58 yr old female presents for tooth ache for 3 days Related Data Home Medications Medication Instructions Recorded Confirmed levothyroxine 100 mcg tablet 100 mcg PO AM Hypothyroid 06/21/22 06/20/23 Previous Rx's Medication Instructions Recorded amoxicillin 500 mg tablet 500 mg PO BID 10 days #20 tabs 07/31/23 Allergies Allergy/AdvReac Type Severity Reaction Status Date / Time No Known Allergies Allergy Verified 03/17/23 09:18 Worker's Comp Is this a Worker's Comp case?: No Is this an [facility] Worker's Comp?: No Is this a [facility] Worker's Comp?: No [facility] Disclaimer: The information contained in this section may have been updated after the patient was seen, as this information can be updated by other users. 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) Smoking Status: Current every day smoker tobacco type: cigarettes packs per day: 1 alcohol intake: never current occupational status: employed Travel in the last 8 weeks: None household members: family housing: house ROS Obtained: Yes All systems reviewed & no additional complaints except as documented Constitutional Constitutional: Reports system reviewed and no additional complaints, except as documented and Reports as per HPI Eyes Eyes: Reports system reviewed and no additional complaints, except as documented ENT Ears, Nose, Mouth, and Throat: Reports system reviewed and no additional complaints, except as documented, Reports as per HPI and Reports other Cardiovascular Cardiovascular: Reports system reviewed and no additional complaints, except as documented Respiratory Respiratory: Reports system reviewed and no additional complaints, except as documented Musculoskeletal Musculoskeletal: Reports system reviewed and no additional complaints, except as documented Neurologic Neurologic: Reports system reviewed and no additional complaints, except as documented Endocrine Endocrine: Reports system reviewed and no additional complaints, except as documented Allergic/Immunologic Allergic/Immunologic: Reports system reviewed and no additional complaints, except as documented Physical Exam General General appearance: alert and in no apparent distress Head Head exam: atraumatic Eye Eye exam: Present normal appearance ENT ENT exam: Present mucous membranes moist and TM's normal bilaterally Expanded ENT Exam Teeth numbered Image: 2 1. Fractured and Other (decay to gum line) Respiratory Respiratory exam: Present normal lung sounds bilaterally Cardiovascular Cardiovascular exam: Present regular rate and normal rhythm Neurological Exam Neurological exam: Present alert and oriented X3 Skin Skin exam: Present warm and intact Medical Decision Making Medical Records Medical records reviewed: Yes I reviewed the patient's medical records. Giovanni Inquiry Pt receiving controlled substance: No Giovanni was queried for this patient: No Vital Signs: 07/31/23 11:14 Temperature 97.7 F Temperature Source Oral Pulse Rate [Right Brachial] 75 Respiratory Rate 18 Blood Pressure [Right Arm] 118/70 Blood Pressure Mean [Right Arm] 86 Blood Pressure Source [Right Arm] Automatic Cuff Blood Pressure Position [Right Arm] Sitting 02 Sat by Pulse Oximetry 98 Oxygen Delivery Method Room Air
[2023-07-31] MEDS: cefTRIAXone 1GM VIAL 1 GM IM (11:44)
[2023-07-31] MEDS: LIDOCAINE 1% 5ML PF VIAL IM (11:45)
[2023-07-31 11:56] VITALS: BP 118/70; PULSE 75; RESP 18; TEMP 36.5; O2SAT 98
== END 2023-07-31 11:58 | disposition home or self-care (01) ==
PROVIDERS: Emergency Provider Nurse Practitioner Family; PCP Internal Medicine Adolescent Medicine
DX: K04.7 Periapical abscess without sinus (principal); F17.210 Nicotine dependence, cigarettes, uncomplicated
CPT/HCPCS: 96372; 99212; 99214; G0463; J0696

== ENCOUNTER 2023-11-28 08:06 | Emergency (ER) | payer BC, SELFPAY ==
--- NOTE | 2023-11-28 08:18 | EXP.UTC ---
Discharge Plan Disposition Patient Disposition: Home, Self-Care Condition: Good Prescriptions Prescriptions: New amoxicillin 875 mg tablet 875 mg PO Q12H Qty: 20 0RF benzonatate 100 mg capsule 100 mg PO TIDP PRN (Reason: Cough) Qty: 30 0RF methylprednisolone 4 mg Tablets,Dose Pack 4 mg PO DIRECTED 6 Days Qty: 21 0RF Rx Instructions: Take 1 pack as directed for 6 days No Action levothyroxine 100 mcg tablet 100 mcg PO AM Patient Comments: TAKE 1 TABLET BY MOUTH EVERY DAY amoxicillin 500 mg tablet 500 mg PO BID 10 Days Qty: 20 0RF Referrals Follow up/Referrals: Wesley Hastings MD [Primary Care Provider] - See instructions Activity Restrictions/Add. Instructions Additional Instructions/Restrictions: Drink plenty of fluids. Take tylenol or ibuprofen for pain or fever. Take the medications as directed. Follow up with your regular doctor. GO TO THE ER FOR ANY WORSENING SYMPTOMS Clinical Impressions Clinical Impression: Pharyngitis, Bronchitis Stand Alone Forms Stand Alone Forms: Work/School Release Instructions Patient Instructions: Sore Throat, DI for Pharyngitis/Tonsillopharyngitis -- Adult, Dexamethasone Injection Print Language Print Language: Faroese Discharge ED Provider: Raz Lanza [facility] General Stated complaint: sore throat, congestion, fever, chills, headache Time Seen by Provider: 11/28/23 08:16 History of Present Illness Provider Complaint: She states that for the past 2 days she has had worsening sore throat, sinus congestion, and chest congestion. She has been exposed to strep throat in her home. Related Data Home Medications ?Medication ?Instructions ?Recorded ?Confirmed levothyroxine 100 mcg tablet 100 mcg PO AM Hypothyroid 06/21/22 06/20/23 Previous Rx's ?Medication ?Instructions ?Recorded amoxicillin 500 mg tablet 500 mg PO BID 10 days #20 tabs 07/31/23 amoxicillin 875 mg tablet 875 mg PO Q12H #20 tabs 11/28/23 benzonatate 100 mg capsule 100 mg PO TIDP PRN Cough #30 caps 11/28/23 methylprednisolone 4 mg tablets in 4 mg PO DIRECTED 6 days #21 tabs 11/28/23 a dose pack Allergies Allergy/AdvReac Type Severity Reaction Status Date / Time No Known Allergies Allergy Verified 03/17/23 09:18 [facility] Disclaimer: The information contained in this section may have been updated after the patient was seen, as this information can be updated by other users. 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 (Reviewed 07/31/23 @ 11:39 by Nancy Gaytan ([facility]), MARBLE INSTALLATION HELPER) Thyroid disease COPD (chronic obstructive pulmonary disease) GERD (gastroesophageal reflux disease) Hypothyroid Family History (Reviewed 07/31/23 @ 11:39 by Nancy Gaytan ([facility]), MARBLE INSTALLATION HELPER) Substance abuse Diabetes Coronary artery disease Alcoholism Hyperlipidemia FHx: mental illness Hypertension Thyroid disorder Asthma Social History (Reviewed 07/31/23 @ 11:39 by Nancy Gaytan ([facility]), MARBLE INSTALLATION HELPER) Smoking Status: Current every day smoker tobacco type: cigarettes packs per day: 1 alcohol intake: never current occupational status: employed Travel in the last 8 weeks: None household members: family housing: house ROS Obtained: Yes All systems reviewed & no additional complaints except as documented Constitutional Constitutional: Reports chills and Reports fever(s) Eyes Eyes: Denies eye discharge ENT Ears, Nose, Mouth, and Throat: Reports as per HPI Cardiovascular Cardiovascular: Denies chest pain Respiratory Respiratory: Denies chest congestion and Reports cough Gastrointestinal Gastrointestingal: Reports nausea; Denies abdominal pain, constipation, cramping, diarrhea or vomiting Musculoskeletal Musculoskeletal: Denies arthralgias Integumentary/Breasts Skin/Breast: Denies rash Neurologic Neurologic: Denies paresthesias Physical Exam General General appearance: alert and in no apparent distress Head Head exam: atraumatic, normocephalic and normal inspection
[2023-11-28 08:27] LABS: UTC Strep Screen (Rapid) Negative (Negative)
[2023-11-28 08:37] VITALS: BP 156/72; PULSE 69; RESP 18; TEMP 36.9; O2SAT 96; BMI 25.6
[2023-11-28 08:55] VITALS: BP 156/72; PULSE 69; RESP 16; TEMP 36.9; O2SAT 96
== END 2023-11-28 08:55 | disposition home or self-care (01) ==
PROVIDERS: Emergency Provider Nurse Practitioner Family; PCP Internal Medicine Adolescent Medicine
DX: J20.9 Acute bronchitis, unspecified (principal); J02.9 Acute pharyngitis, unspecified; R50.9 Fever, unspecified
CPT/HCPCS: 87880; 96372; 99212; 99214; G0463; J1100

== ENCOUNTER 2024-04-03 08:03 | Emergency (ER) | payer BC, SELFPAY ==
[2024-04-03 08:10] VITALS: BP 128/48; PULSE 85; RESP 16; TEMP 36.8; O2SAT 96; BMI 25.0
--- NOTE | 2024-04-03 08:23 | EXP.UTC ---
Discharge Plan Disposition Patient Disposition: Home, Self-Care Condition: Good Prescriptions Prescriptions: New benzonatate 100 mg capsule 100 mg PO TID PRN (Reason: cough) Qty: 30 0RF methylprednisolone [Medrol (Geovany)] 4 mg tablets,dose pack See Rx Instructions .Route .COMPLEX 6 Days Qty: 21 0RF Rx Instructions: taper pack; amoxicillin-pot clavulanate 875-125 mg Tablet 1 tab PO Q12H Qty: 20 0RF guaifenesin [Mucinex] 600 mg tablet extended release 12hr 600 - 1,200 mg PO BID PRN (Reason: cough/congestion) Qty: 30 0RF No Action levothyroxine 100 mcg tablet 100 mcg PO AM Patient Comments: TAKE 1 TABLET BY MOUTH EVERY DAY Referrals Follow up/Referrals: Wesley Hastings MD [Primary Care Provider] - See instructions Activity Restrictions/Add. Instructions Additional Instructions/Restrictions: Start antibiotic today. Be sure to complete entire prescription even if feeling better Monitor temp. Tylenol every 4 hours as needed and / or ibuprofen every 6 hours as needed ( As long as your primary care physician has told you that it ok to take both. For fever/aches/pains ER if no less than 101 despite Tylenol or Motrin Humidifier/vaporizer or hot steamy shower Mucinex during the day for your cough and cough suppressant only at night. Be sure to drink lots of water. *Tessalon Perles will not cause drowsiness but use at bedtime to help stop cough so that you may get some rest. *Start steroid today. Helps with inflammation therefore, cough and wheezing. Follow directions on the package. Reviewed side effects. Patient reports taking them before. Follow up IMMEDIATELY for new or worsening of symptoms OR no noticeable improvement over the next 48-72 hours. 911 immediately for any life threatening symptoms such as chest pain or difficulty breathing Clinical Impressions Clinical Impression: Bronchitis Instructions Patient Instructions: Acute Bronchitis, DI for Sinusitis Print Language Print Language: Albanian Discharge ED Provider: Lynn Peoples [facility] [place] HPI General Stated complaint: cough, congestion Mode of Arrival: Ambulatory Source of Information: Patient Limitations: No Limitations Time Seen by Provider: 04/03/24 08:24 Description of Symptoms (Recalled from Triage Doc. by RN): PATIENT C/O COUGH AND CHEST CONGESTION X 2 WEEKS HEENT Symptoms (Recalled from RN notes): No Resp Symptoms (Recalled from RN notes): Yes Skin Symptoms (Recalled from RN notes): No MS Symptoms (Recalled from RN notes): No Functional Status (Recalled from RN notes): WNL History of Present Illness Provider Complaint: Patient states that for the last couple of weeks she has been having cough and chest congestion and thinks she may have bronchitis States that she hasnt had any fever that she is aware of but the cough and chest congestion feels like it is getting worse so she came in Related Data Home Medications ?Medication ?Instructions ?Recorded ?Confirmed levothyroxine 100 mcg tablet 100 mcg PO AM Hypothyroid 06/21/22 04/03/24 Previous Rx's ?Medication ?Instructions ?Recorded amoxicillin 875 mg-potassium 1 tab PO Q12H #20 tabs 04/03/24 clavulanate 125 mg tablet benzonatate 100 mg capsule 100 mg PO TID PRN cough #30 caps 04/03/24 guaifenesin 600 mg tablet, 600 - 1,200 mg (1 - 2 x 600 mg) PO 04/03/24 extended release 12 hr (Mucinex) BID PRN cough/congestion #30 tabs methylprednisolone 4 mg tablets in See Rx Instructions .Route 04/03/24 a dose pack (Medrol (Geovany)) .COMPLEX 6 days #21 tabs Allergies Allergy/AdvReac Type Severity Reaction Status Date / Time No Known Allergies Allergy Verified 03/17/23 09:18 Worker's Comp Is this a Worker's Comp case?: No [facility] Disclaimer: The information contained in this section may have been updated after the patient was seen, as this information can be updated by other users. 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) Smoking Status: Current every day smoker tobacco type: cigarettes packs per day: 1 alcohol intake: never current occupational status: employed Travel in the last 8 weeks: None household members: family housing: house Have you lived/traveled outside US in past 30 days?: No Contact w/someone who lives/traveled outside US past 30 days?: No Exposure to someone with infectious disease in past 14 days?: No Do you have a fever (greater than 100.4 F or 38 C)?: No Have you tested positive for COVID-19: No Exposed to someone with COVID-19 in past 14 days?: No Do you have a sore throat?: No Do you have a cough?: Yes Do you have any weakness?: No Do you have any diarrhea?: No Are you experiencing any unusual bleeding?: No Do you have any muscle aches/pain?: No Do you have any abdominal pain?: No Are you experiencing loss of taste or smell?: No ROS Obtained: Yes All systems reviewed & no additional complaints except as documented and Yes Systems reviewed as appropriate & no additional complaints except as documented Constitutional Constitutional: Reports system reviewed and no additional complaints, except as documented and Reports as per HPI ENT Ears, Nose, Mouth, and Throat: Reports system reviewed and no additional complaints, except as documented, Reports as per HPI, Reports sinus pain and Reports sinus pressure Cardiovascular Cardiovascular: Reports system reviewed and no additional complaints, except as documented and Reports as per HPI Respiratory Respiratory: Reports system reviewed and no additional complaints, except as documented, Reports as per HPI, Reports chest congestion and Reports cough Gastrointestinal Gastrointestingal: Reports system reviewed and no additional complaints, except as documented and as per HPI Genitourinary Female Genitourinary: Reports system reviewed and no additional complaints, except as documented and Reports as per HPI Physical Exam General General appearance: alert and in no apparent distress ENT ENT exam: Present mucous membranes moist Expanded ENT Exam Nose exam: Present sinus tenderness Throat exam: Present other (PND noted) Respiratory Respiratory exam: Present normal lung sounds bilaterally; Absent respiratory distress or wheezes Cardiovascular Cardiovascular exam: Present regular rate, normal rhythm and normal heart sounds Abdominal Exam Abdominal exam: Present soft and normal bowel sounds; Absent distention or tenderness Neurological Exam Neurological exam: Present alert, oriented X3 and normal gait Medical Decision Making Medical Records Screening: Per USPSTF and CDC recommendations, given the prevalence of disease in our region, it is our hospital?s policy to screen for HIV and viral Hepatitis for all patients aged 18 and over and those with ongoing risk factors. Giovanni Inquiry Pt receiving controlled substance: No Giovanni was queried for this patient: No Vital Signs: 04/03/24 08:10 Temperature 98.3 F Temperature Source Oral Pulse Rate [Left Brachial] 85 Respiratory Rate 16 Blood Pressure [Left Arm] 128/48 L Blood Pressure Mean [Left Arm] 74 Blood Pressure Source [Left Arm] Automatic Cuff Blood Pressure Position [Left Arm] Sitting 02 Sat by Pulse Oximetry 96 Oxygen Delivery Method Room Air
[2024-04-03 08:35] VITALS: BP 128/48; PULSE 85; RESP 16; TEMP 36.8; O2SAT 96
[2024-04-03] MEDS: METHYLPREDNISOLONE SOD SUCC 125MG VIAL 125 MG IM (08:40)
== END 2024-04-03 08:47 | disposition home or self-care (01) ==
PROVIDERS: Emergency Provider Nurse Practitioner; PCP Internal Medicine Adolescent Medicine
DX: J40 Bronchitis, not specified as acute or chronic (principal); R05.9 Cough, unspecified; R09.89 Other specified symptoms and signs involving the circulatory and respiratory systems
CPT/HCPCS: 96372; 99212; G0381; J2919

== ENCOUNTER 2024-04-28 15:12 | Outpatient (CLI) | payer BC, SELFPAY ==
--- NOTE | 2024-04-28 15:12 | MM_ITS ---
PROCEDURE INFORMATION: Exam: MG Bilateral Screening 3D Mammography Exam date and time: 04/28/2024 2:54 PM Age: 59 years old Clinical indication: Screening examination; history of benign bilateral breast biopsies. TECHNIQUE: Imaging protocol: Bilateral Screening tomosynthesis and 2D mammography including computer-aided detection (CAD) when performed. COMPARISON: 1. MG MM DIG SCREENING MAMM BI W/CAD 03/05/2023 3:24 PM 2. MG MM DIG SCREENING MAMM BI W/CAD 02/13/2022 12:55 PM 3. MG MM DIG SCREENING MAMM BI W/CAD 01/03/2021 2:52 PM FINDINGS: MAMMOGRAPHY: Breast composition: The breasts are heterogeneously dense, which may obscure small masses. Mass: No suspicious masses. Architectural distortion: No suspicious distortion. Two biopsy clips noted in the right upper outer quadrant and left upper inner quadrant. Calcifications: No suspicious calcifications. Asymmetric density: None. Skin thickening: None. Axillary adenopathy: None. IMPRESSION: No mammographic evidence of malignancy. Annual screening is recommended unless otherwise clinically indicated. ASSESSMENT: BI-RADS Category 2: Benign.
== END 2024-04-28 23:59 | disposition home or self-care (01) ==
LOC: RAD 15:12
PROVIDERS: PCP Internal Medicine Adolescent Medicine; Visit Provider Obstetrics & Gynecology
DX: Z12.31 Encounter for screening mammogram for malignant neoplasm of breast (principal)
CPT/HCPCS: 77063; 77067

== ENCOUNTER 2024-06-01 09:01 | Outpatient (CLI) | payer BC, SELFPAY ==
--- NOTE | 2024-06-01 09:03 | XR_ITS ---
FINAL REPORT CLINICAL HISTORY: cough that wont go away, chest and rib pain from coughing COMPARISON: None FINDINGS: CHEST 2 VIEWS No acute pulmonary density is evident. There is no evidence of effusion or other pleural disease. The mediastinum has a normal appearance. The cardiac silhouette is unremarkable. IMPRESSION: Unremarkable chest exam. Reviewed, Interpreted and Dictated by Gayatri Meehan MD Transcribed by Sandra Schwab Authenticated and [facility]
== END 2024-06-01 23:59 | disposition home or self-care (01) ==
LOC: RAD 09:01
PROVIDERS: PCP Internal Medicine Adolescent Medicine; Visit Provider Student in an Organized Health Care Education/Training Program
DX: R05.9 Cough, unspecified (principal)
CPT/HCPCS: 71046

== ENCOUNTER 2024-06-08 07:02 | Outpatient (CLI) | payer BC, SELFPAY ==
--- NOTE | 2024-06-08 07:07 | CT_ITS ---
FINAL REPORT CLINICAL HISTORY: SCREENING current smoker 1ppd x45 years COMPARISON: 07/31/2022 FINDINGS: CT CHEST LOW DOSE SCREENING HISTORY: Screening exam for lung cancer. DOSE: CTDI vol: 2.90 mGy, DLP: 96.38 mGy*cm TECHNIQUE: Axial CT without IV contrast administration using low dose protocol. This study was performed with techniques to keep radiation doses as low as reasonably achievable, (ALARA). Individualized dose reduction techniques using automated exposure control or adjustment of mA and/or kV according to the patient's size were employed. No pulmonary lesions are seen suspicious for neoplasm. Lingular and right lower lobe atelectasis is new from the prior study. No pleural or pericardial effusion is seen. No adenopathy or mass lesion is present. IMPRESSION: No evidence of lung cancer LUNG RADS CATEGORY 1 RECOMMENDATION: 12 month LDCT follow up Reviewed, Interpreted and Dictated by Gayatri Meehan MD Transcribed by Rylie Jo Authenticated and [facility]
[2024-06-08 08:03] LABS: Basophils # 0.1 K/mm3 (0-0.2); Basophils % 0.3 % (0.1-2.0); Eosinophils # 0.2 K/mm3 (0.0-0.4); Eosinophils % 1.1 % (0.1-12.0); Hematocrit 43.4 % (37.0-47.0); Hemoglobin 14.6 g/dL (12.2-16.2); Lymphocytes # 5.9 K/mm3 (0.7-4.5); Lymphocytes % 39.4 % (10-50); Mean Corpuscular HGB Conc 33.6 g/dL (31.8-35.4); Mean Corpuscular Hemoglobin 31.2 pg (27.0-31.2); Mean Corpuscular Volume 92.7 fl (81-99); Mean Platelet Volume 10.2 fl (7.4-10.4); Monocytes # 1.3 K/mm3 (0.1-1.0); Monocytes % 8.9 % (1.7-9.3); Neutrophils # 7.4 K/mm3 (1.8-7.8); Neutrophils % 49.8 % (37.0-80.0); Platelet Count 290 K/mm3 (142-424); Red Blood Count 4.68 M/mm3 (4.20-5.40); Red Cell Distribution Width 13.1 % (11.5-17.5); White Blood Count 14.9 K/mm3 (4.8-10.8)
[2024-06-08 08:12] LABS: Alanine Aminotransferase 27 U/L (12-78); Albumin/Globulin Ratio 1.9 (1.1-1.8); Alkaline Phosphatase 94 U/L (38-126); Anion Gap 6.7 mEq/L (5-15); Aspartate Amino Transferase 24 U/L (14-36); Bilirubin,Total 0.4 mg/dl (0.2-1.3); Blood Urea Nitrogen 25 mg/dl (7-17); Calcium 8.8 mg/dl (8.4-10.2); Carbon Dioxide 30 mmol/L (22.0-30.0); Chloride 110 mmol/L (98-107); Chol/HDL Ratio 2.9 (1-3.5); Cholesterol 158 mg/dl (140-200); Estimated Glomerular Filt Rate 86 ml/min (>60); GFR (African American) 104 ML/MIN (>60); Globulin 2.1 g/dL (1.3-3.2); Glucose 82 mg/dl (74-100); HDL Cholesterol 54 mg/dl (40-60); Potassium 3.7 mmoL/L (3.5-5.1); Sodium 143 mmol/L (136-145); Total Protein,Serum 6.1 g/dl (6.3-8.2); Triglycerides 123 mg/dl (30-150); VLDL Cholesterol 25 mg/dL (0-40)
[2024-06-08 08:22] LABS: Direct LDL Cholesterol 61.68 mg/dL (100-129)
[2024-06-08 08:42] LABS: Thyroid Stimulating Hormone 2.84 uIU/mL (0.465-4.68)
== END 2024-06-08 23:59 | disposition home or self-care (01) ==
PROVIDERS: PCP Internal Medicine Adolescent Medicine; Visit Provider Nurse Practitioner Family
DX: F17.210 Nicotine dependence, cigarettes, uncomplicated (principal); E03.9 Hypothyroidism, unspecified; R53.83 Other fatigue
CPT/HCPCS: 36415; 71271; 80053; 80061; 84443; 85025

== ENCOUNTER 2024-09-02 09:36 | Outpatient (CLI) | payer BC, SELFPAY ==
[2024-09-02 20:29] LABS: Coronavirus 19, PCR Not Detected (NotDetected); Human Rhinovirus Not Detected (NotDetected); Influenza A, PCR Not Detected (NotDetected); Influenza B, PCR Not Detected (NotDetected); Respiratory Syncytial Virus Not Detected (NotDetected)
== END 2024-09-02 23:59 | disposition home or self-care (01) ==
LOC: LAB.DROPOF 09-04 09:37
PROVIDERS: PCP Nurse Practitioner; Visit Provider Nurse Practitioner
DX: R05.9 Cough, unspecified (principal)
CPT/HCPCS: 87631

== ENCOUNTER 2025-01-23 08:28 | Outpatient (CLI) | payer BC, SELFPAY ==
[2025-01-23 14:58] LABS: Coronavirus 19, PCR Not Detected (NotDetected); Influenza A, PCR Not Detected (NotDetected); Influenza B, PCR Not Detected (NotDetected)
== END 2025-01-23 23:59 ==
LOC: LAB.DROPOF 01-25 08:29
PROVIDERS: PCP Internal Medicine Adolescent Medicine; Visit Provider Nurse Practitioner
DX: J06.9 Acute upper respiratory infection, unspecified (principal)
CPT/HCPCS: 87631

== ENCOUNTER 2025-02-21 16:41 | Outpatient (CLI) | payer BC, SELFPAY ==
--- OUTSIDE RECORDS SUMMARY | 2025-02-21 16:43 | XMS_ITS ---
Author Organization Unknown ENCOUNTERS Encounter Performer Location Date Diagnosis Diagnosis Status Emergency [facility] [address] [place] [address] [id number] YAYO Pre Admit [facility] [address] [place] [address] [id number] Pre Admit [facility] [address] [place] [address] [id number] Emergency [facility] [address] [place] [address] [id number] [facility]O [facility]) [facility] [address] [place] [address] [id number] YAYO Pre Admit Eugonda yman ([facility]) [facility] [address] [place] [address] [id number] Pre Admit [facility] [address] [place] [address] [id number] Emergency [facility] [address] [place] [address] [id number] YAYO Emergency Eugonda yman ([facility]) [facility] [address] [place] [address] [id number] YAYO Pre Admit Eugonda Fryman ([facility]) [facility] [address] [place] [address] [id number] Emergency [facility] [address] [place] [address] [id number] YAYO Pre Admit [facility] [address] [place] [address] [id number] Emergency [facility] [address] [place] [address] [id number] YAYO Emergency [facility] [address] [facility] [address] [place] [address] [id number] YAYO Emergency [facility] [place] (ED) [facility] [address] [facility] [address] [place] [address] [id number] [facility] Emergency [facility] [address] [facility] [address] [place] [address] [id number] [facility] Emergency [place] [id number] [facility] [address] [place] [address] [id number] YAYO *Note: Encounters from your own facility or health system may be excluded. Allergies, Adverse Reactions, Alerts Allergen Type Severity Identification Date Medications Name Date Quantity Days Supplied GPI Number
--- NOTE | 2025-02-21 16:45 | XR_ITS ---
PROCEDURE INFORMATION: Exam: XR Chest Exam date and time: 02/21/2025 4:46 PM Age: 59 years old Clinical indication: Other: Chest congestion TECHNIQUE: Imaging protocol: Radiologic exam of the chest. Views: 2 views. COMPARISON: CT LUNG SCREENING 06/08/2024 7:16 AM FINDINGS: Lungs: Lungs are well aerated without a focal area of consolidation. Pleural spaces: Unremarkable. No pleural effusion. No pneumothorax. Heart/Mediastinum: Unremarkable. No cardiomegaly. Bones/joints: Unremarkable. IMPRESSION: Lungs are well aerated without a focal area of consolidation.
== END 2025-02-21 23:59 | disposition home or self-care (01) ==
LOC: RAD 16:41
PROVIDERS: PCP Internal Medicine Adolescent Medicine; Visit Provider Nurse Practitioner
DX: J40 Bronchitis, not specified as acute or chronic (principal)
CPT/HCPCS: 71046